=== PATIENT | female | born 1950 | race Caucasian/White ===

== ENCOUNTER → 2017-02-25 | Outpatient (CLI) | payer OTHER ==
[~2017-02-25] MED LIST: CEPHALEXIN500 M1 PO
== END | disposition home or self-care (01) ==
LOC: ORTHO 08:51
DX: M25.572 Pain in left ankle and joints of left foot (principal); M25.475 Effusion, left foot

== ENCOUNTER → 2017-04-02 | Outpatient (CLI) | payer OTHER | END | disposition home or self-care (01) | LOC: MRI 03-28 08:00 | DX: S90.32XA Contusion of left foot, initial encounter (principal); X58.XXXA Exposure to other specified factors, initial encounter; Y93.89 Activity, other specified; Y92.89 Other specified places as the place of occurrence of the external cause; Y99.8 Other external cause status ==

== ENCOUNTER → 2017-05-01 | Outpatient (CLI) | payer OTHER | END | disposition home or self-care (01) | LOC: ORTHO 03:41 | DX: S92.352D Displaced fracture of fifth metatarsal bone, left foot, subsequent encounter for fracture with routine healing (principal); S92.342D Displaced fracture of fourth metatarsal bone, left foot, subsequent encounter for fracture with routine healing; X58.XXXD Exposure to other specified factors, subsequent encounter; M20.12 Hallux valgus (acquired), left foot ==

== ENCOUNTER → 2017-07-17 | Outpatient (CLI) | payer MEDICARE | END | disposition home or self-care (01) | LOC: ORTHO 00:22 → RAD 08:00 → ORTHO 10:20 | DX: S92.355D Nondisplaced fracture of fifth metatarsal bone, left foot, subsequent encounter for fracture with routine healing (principal); X58.XXXD Exposure to other specified factors, subsequent encounter ==

== ENCOUNTER → 2018-02-07 | Day surgery (SDC) | payer MEDICARE ==
[~2018-02-07] VITALS: Ht 152.4 cm; Wt 53.5 kg
[~2018-02-07] MED LIST changes: +ATORVASTATIN CA10 M1 PO; +CALCIUM500 M1 PO; +ZEGERID OTC 201 EACH PO
--- NOTE | ~2018-02-07 | PROC NOTE ---
[place], [place] PROCEDURE NOTE NAME: SHAGGY WALLACE [facility] #: [id number] UNIT #: [id number] ROOM: DOCTOR: BROOKLYN PÉREZ MD BIRTHDATE: [birth year] DOS: PROCEDURE: 1. EGD and biopsy. 2. Colonoscopy. INDICATIONS: GERD and history of colon polyps. An informed consent was obtained from the patient after indication of procedures, the alternatives and potential complications were explained to her. PROCEDURE MEDICATION: Sedation was administered by Anesthesiology Department. SCOPE USED: For upper endoscopy, Olympus diagnostic adult upper endoscope GIF-180, depth of insertion was to the descending duodenum. With the colonoscopy, scope used was Olympus pediatric colonoscope variable stiffness GIF-180, depth of insertion was to the cecum, which was identified by the usual landmarks, appendiceal orifice, ileocecal valve and triangular fold, in addition to transillumination in the right lower quadrant. FINDINGS: After adequate sedation, the patient was placed in left lateral decubitus position. Upper endoscopy was performed first. Scope was introduced under direct visualization through the upper esophageal sphincter into the esophagus. Esophageal mucosa appeared normal with no evidence of ulcerations or strictures. Lower esophageal sphincter was identified at 38 cm from the incisors. The stomach was then intubated. Gastric mucosa inspected. Moderate gastritis was seen. No discrete ulcers or active bleeding. A VANCE test was performed from the gastric antrum and body. On retroflexed views in the fundus, no hiatal hernia was seen. The pylorus was intubated easily. The duodenal bulb and descending duodenum were within normal range. Scope was then withdrawn after the stomach was decompressed. We then proceeded with the colonoscopy. Rectal examination showed diminished sphincter tone and no external hemorrhoids. Scope was introduced into the rectum, then advanced to the cecum with slight difficulty due to looping left colon. The prep was good. Mild left-sided diverticular disease was identified with no evidence of acute diverticulitis or diverticular hemorrhage. The remaining colon mucosa appeared otherwise normal with no evidence of polyps, ulcerations or obstructing lesions. Retroflexed views in the rectum showed grade 2 internal hemorrhoids. Scope was then withdrawn after the rectum was decompressed. The patient tolerated the procedures well. IMPRESSION: 1. Moderate gastritis, VANCE test performed. 2. Mild left-sided diverticular disease. 3. Normal colon mucosa otherwise. No polyps seen. PLAN: We will review the VANCE test results and treat the patient accordingly. Repeat surveillance colonoscopy advised in 5 years. Office followup will be scheduled in 2-3 weeks. [place], [place] PROCEDURE NOTE NAME: SHAGGY WALLACE Sixt[facility] UNIT #: [id number] ROOM: DOCTOR: BROOKLYN PÉREZ MD BIRTHDATE: [birth year] BROOKLYN PÉREZ MD CM:PROCNOTE:PROCEDURE NOTE [id number] BROOKLYN PÉREZ MD
[2018-02-07 07:44] VITALS: BP 127/72
[2018-02-07 08:37] VITALS: BP 116/68
[2018-02-07 08:47] VITALS: BP 95/53
[2018-02-07 09:04] VITALS: BP 112/58
== END ==
LOC: SDC 02-03 08:00
DX: Z09 Encounter for follow-up examination after completed treatment for conditions other than malignant neoplasm (principal); K21.9 Gastro-esophageal reflux disease without esophagitis; K29.70 Gastritis, unspecified, without bleeding; K57.30 Diverticulosis of large intestine without perforation or abscess without bleeding; Z79.899 Other long term (current) drug therapy; Z90.710 Acquired absence of both cervix and uterus; Z86.010 Personal history of colon polyps
CPT/HCPCS: 00813; 43239; G0105

== ENCOUNTER → 2018-03-25 | Outpatient (CLI) | payer MEDICARE | END | disposition home or self-care (01) | LOC: LAB 09:34 | DX: A04.8 Other specified bacterial intestinal infections (principal) ==

== ENCOUNTER → 2018-04-11 | Outpatient (CLI) | payer MEDICARE ==
[2018-04-11 09:27] LABS: BASO % 0.9 % (0.0-1.0); EOS # 0.1 10*3/uL (0.0-0.4); EOS % 2.1 % (1.0-4.0); HEMATOCRIT 46.2 % (37.0-47.0); HEMOGLOBIN 14.4 g/dl (12.0-16.0); LYMPH # 1.9 10*3/uL (1.3-4.4); LYMPH % 44.1 % (27.0-41.0); MEAN CELL VOLUME 95.1 fl (81.0-99.0); MEAN CORPUSCULAR HGB 29.6 pg (27.0-31.0); MEAN CORPUSCULAR HGB CONC 31.2 g/dl (33.0-37.0); MONO # 0.3 10*3/uL (0.1-1.0); MONO % 7.5 % (3.0-9.0); NEUT # 1.9 10*3/uL (2.3-7.9); NEUT % 45.2 % (47.0-73.0); PLATELET COUNT AUTOMATED 245 10*3/uL (130-400); RED BLOOD COUNT 4.86 10*6/uL (4.10-5.10); WHITE BLOOD COUNT 4.2 10*3/uL (4.8-10.8)
[2018-04-11 09:51] LABS: ALBUMIN 3.6 gm/dl (3.1-4.5); BUN 13 mg/dl (7-24); CHLORIDE 108 mmol/L (98-107); SODIUM 144 mmol/L (136-145)
[2018-04-11 10:03] LABS: ALKALINE PHOSPHATASE 91 U/L (45-117); CHOLESTEROL 178 mg/dL (<200); HDL CHOLESTEROL 45 mg/dl (40-60); LDL CHOLESTEROL 99 mg/dL (9-159); SGOT/AST 27 IU/L (3-35); SGPT/ALT 45 U/L (12-78); TOTAL PROTEIN 7.3 gm/dL (6.4-8.2); TRIGLYCERIDES 169 mg/dl (<150); VLDL CHOLESTEROL 34 mg/dL (6-40)
== END | disposition home or self-care (01) ==
LOC: LAB 08:28
PROVIDERS: Internal Medicine
DX: Z00.01 Encounter for general adult medical examination with abnormal findings (principal); E78.00 Pure hypercholesterolemia, unspecified; E55.9 Vitamin D deficiency, unspecified

== ENCOUNTER → 2018-05-19 | Outpatient (CLI) | payer MEDICARE | END | disposition home or self-care (01) | LOC: RAD 12:36 | DX: M85.89 Other specified disorders of bone density and structure, multiple sites (principal); Z78.0 Asymptomatic menopausal state; Z90.710 Acquired absence of both cervix and uterus ==

== ENCOUNTER → 2019-04-13 | Outpatient (CLI) | payer MEDICARE ==
[2019-04-13 09:18] LABS: HEMATOCRIT 46.3 % (37.0-47.0); HEMOGLOBIN 14.9 g/dl (12.0-16.0); MEAN CELL VOLUME 95.1 fl (81.0-99.0); MEAN CORPUSCULAR HGB 30.6 pg (27.0-31.0); MEAN CORPUSCULAR HGB CONC 32.2 g/dl (33.0-37.0); MEAN PLATELET VOLUME 11.3 fl (9.6-12.3); RED BLOOD COUNT 4.87 10*6/uL (4.10-5.10); RED CELL DISTRI WIDTH 13.1 % (0-14.5)
[2019-04-13 09:30] LABS: CHLORIDE 106 mmol/L (98-107); POTASSIUM 4.3 mmol/L (3.5-5.1); SODIUM 143 mmol/L (136-145)
[2019-04-13 09:55] LABS: ALBUMIN 3.8 gm/dl (3.1-4.5); BUN 16 mg/dl (7-24); CHOLESTEROL 164 mg/dL (<200); CREATININE 0.93 mg/dL (0.55-1.02); SGPT/ALT 25 U/L (12-78); TRIGLYCERIDES 103 mg/dl (<150); VLDL CHOLESTEROL 21 mg/dL (6-40)
[2019-04-13 10:24] LABS: ALKALINE PHOSPHATASE 85 U/L (45-117); SGOT/AST 19 IU/L (3-35); TOTAL PROTEIN 7.1 gm/dL (6.4-8.2)
[2019-04-13 10:25] LABS: HDL CHOLESTEROL 52 mg/dl (40-60); LDL CHOLESTEROL 91 mg/dL (9-159)
[2019-04-13 10:49] LABS: VITAMIN D, 25-HYDROXY 58.6 ng/mL (30-100)
== END | disposition home or self-care (01) ==
LOC: LAB 08:12
PROVIDERS: Physician Assistant
DX: E78.00 Pure hypercholesterolemia, unspecified (principal); K21.9 Gastro-esophageal reflux disease without esophagitis; E55.9 Vitamin D deficiency, unspecified

== ENCOUNTER → 2019-08-24 | Outpatient (CLI) | payer MEDICARE | END | disposition home or self-care (01) | LOC: MRI 00:26 | DX: I67.82 Cerebral ischemia (principal); H90.41 Sensorineural hearing loss, unilateral, right ear, with unrestricted hearing on the contralateral side ==

== ENCOUNTER → 2020-05-18 | Outpatient (CLI) | payer MEDICARE | END | disposition home or self-care (01) | LOC: RAD 08:48 | DX: M85.89 Other specified disorders of bone density and structure, multiple sites (principal) ==

== ENCOUNTER → 2020-06-08 | Outpatient (CLI) | payer MEDICARE | END | disposition home or self-care (01) | LOC: RESCLI 00:37 | DX: M85.89 Other specified disorders of bone density and structure, multiple sites (principal); K21.9 Gastro-esophageal reflux disease without esophagitis; E55.9 Vitamin D deficiency, unspecified; E78.2 Mixed hyperlipidemia; Z79.899 Other long term (current) drug therapy; E78.00 Pure hypercholesterolemia, unspecified; Z90.710 Acquired absence of both cervix and uterus; Z98.890 Other specified postprocedural states ==

== ENCOUNTER → 2020-10-20 | Outpatient (CLI) | payer MEDICARE | END | disposition home or self-care (01) | LOC: RESCLI 00:43 | PROVIDERS: ATTEND Internal Medicine Nephrology | DX: K21.9 Gastro-esophageal reflux disease without esophagitis (principal); M85.89 Other specified disorders of bone density and structure, multiple sites; E78.5 Hyperlipidemia, unspecified; Z79.899 Other long term (current) drug therapy ==

== ENCOUNTER → 2021-04-13 | Outpatient (CLI) | payer MEDICARE | END | disposition home or self-care (01) | LOC: RESCLI 02:04 | PROVIDERS: ATTEND Internal Medicine | DX: E78.5 Hyperlipidemia, unspecified (principal); K21.9 Gastro-esophageal reflux disease without esophagitis; M85.89 Other specified disorders of bone density and structure, multiple sites; E78.00 Pure hypercholesterolemia, unspecified; Z79.899 Other long term (current) drug therapy ==

== ENCOUNTER → 2022-04-12 | Outpatient (CLI) | payer MEDICARE | END | disposition home or self-care (01) | LOC: RESCLI 00:58 | PROVIDERS: ATTEND Internal Medicine | DX: K21.9 Gastro-esophageal reflux disease without esophagitis (principal); M81.0 Age-related osteoporosis without current pathological fracture; E78.2 Mixed hyperlipidemia; F41.9 Anxiety disorder, unspecified; G47.00 Insomnia, unspecified; Z79.899 Other long term (current) drug therapy ==

== ENCOUNTER → 2022-08-13 | Outpatient (CLI) | payer MEDICARE ==
[2022-08-13 10:09] LABS: HEMATOCRIT 46.7 % (37.0-47.0); MEAN CELL VOLUME 95.3 fl (81.0-99.0); MEAN CORPUSCULAR HGB 30.8 pg (27.0-31.0); MEAN CORPUSCULAR HGB CONC 32.3 g/dl (33.0-37.0); MEAN PLATELET VOLUME 10.8 fl (9.6-12.3); RED BLOOD COUNT 4.9 10*6/uL (4.10-5.10); RED CELL DISTRI WIDTH 13.2 % (0-14.5); WHITE BLOOD COUNT 4.4 10*3/uL (4.8-10.8)
[2022-08-13 10:39] LABS: ALKALINE PHOSPHATASE 80 U/L (45-117); BUN 17 mg/dl (7-24); CHLORIDE 111 mmol/L (98-107); CHOLESTEROL 175 mg/dL (<200); LDL CHOLESTEROL 96 mg/dL (9-159); POTASSIUM 4.2 mmol/L (3.5-5.1); SGOT/AST 16 IU/L (3-35); SGPT/ALT 25 U/L (12-78); SODIUM 145 mmol/L (136-145); TOTAL PROTEIN 7.1 gm/dL (6.4-8.2); TRIGLYCERIDES 128 mg/dl (<150)
== END | disposition home or self-care (01) ==
LOC: LAB 09:21
PROVIDERS: ATTEND Physician Assistant
DX: K21.9 Gastro-esophageal reflux disease without esophagitis (principal); E78.2 Mixed hyperlipidemia

== ENCOUNTER → 2022-08-20 | Outpatient (CLI) | payer MEDICARE | END | disposition home or self-care (01) | LOC: RAD 02:49 | PROVIDERS: ATTEND Physician Assistant | DX: M85.852 Other specified disorders of bone density and structure, left thigh (principal); M85.89 Other specified disorders of bone density and structure, multiple sites; N95.9 Unspecified menopausal and perimenopausal disorder ==

== ENCOUNTER → 2022-11-12 | Outpatient (CLI) | payer MEDICARE | END | disposition home or self-care (01) | LOC: INJECTION 10-29 00:39 | PROVIDERS: ATTEND Physician Assistant | DX: M81.0 Age-related osteoporosis without current pathological fracture (principal); K21.9 Gastro-esophageal reflux disease without esophagitis ==

== ENCOUNTER → 2023-03-20 | Outpatient (CLI) | payer MEDICARE | END | disposition home or self-care (01) | LOC: RESCLI 01:23 | PROVIDERS: ATTEND Student in an Organized Health Care Education/Training Program | DX: K21.9 Gastro-esophageal reflux disease without esophagitis (principal); M85.89 Other specified disorders of bone density and structure, multiple sites; Z91.09 Other allergy status, other than to drugs and biological substances; E78.2 Mixed hyperlipidemia; M81.0 Age-related osteoporosis without current pathological fracture; H10.9 Unspecified conjunctivitis; Z12.11 Encounter for screening for malignant neoplasm of colon; Z82.49 Family history of ischemic heart disease and other diseases of the circulatory system; F10.90 Alcohol use, unspecified, uncomplicated; Z90.710 Acquired absence of both cervix and uterus; Z98.890 Other specified postprocedural states; Z79.899 Other long term (current) drug therapy ==

== ENCOUNTER → 2023-05-23 | Day surgery (SDC) | payer MEDICARE ==
[~2023-05-23] VITALS: Ht 152.4 cm; Wt 53.5 kg
[2023-05-23 06:56] VITALS: BP 114/73
[2023-05-23 07:51] VITALS: BP 103/53
[2023-05-23 08:04] VITALS: BP 112/61
[2023-05-23 08:21] VITALS: BP 121/66
== END ==
LOC: SDC 05-16 08:45
PROVIDERS: ATTEND Surgery
DX: Z12.11 Encounter for screening for malignant neoplasm of colon (principal); D12.2 Benign neoplasm of ascending colon; K57.30 Diverticulosis of large intestine without perforation or abscess without bleeding; K29.50 Unspecified chronic gastritis without bleeding; K21.9 Gastro-esophageal reflux disease without esophagitis; E78.00 Pure hypercholesterolemia, unspecified; Z86.010 Personal history of colon polyps; Z90.710 Acquired absence of both cervix and uterus; Z98.890 Other specified postprocedural states

== ENCOUNTER → 2023-06-14 | Outpatient (CLI) | payer MEDICARE ==
[2023-06-14 10:30] VITALS: BP 144/58
== END | disposition home or self-care (01) ==
LOC: INJECTION 01:02
PROVIDERS: ATTEND Physician Assistant
DX: M81.0 Age-related osteoporosis without current pathological fracture (principal); K21.9 Gastro-esophageal reflux disease without esophagitis; E78.00 Pure hypercholesterolemia, unspecified; Z90.710 Acquired absence of both cervix and uterus; Z98.890 Other specified postprocedural states

== ENCOUNTER → 2024-03-11 | Outpatient (CLI) | payer MEDICARE | END | disposition home or self-care (01) | LOC: RESCLI 01:27 | PROVIDERS: ATTEND Internal Medicine | DX: K21.9 Gastro-esophageal reflux disease without esophagitis (principal); E78.5 Hyperlipidemia, unspecified; M81.0 Age-related osteoporosis without current pathological fracture; H10.9 Unspecified conjunctivitis; M85.88 Other specified disorders of bone density and structure, other site; E78.00 Pure hypercholesterolemia, unspecified; Z98.890 Other specified postprocedural states; Z82.49 Family history of ischemic heart disease and other diseases of the circulatory system; Z79.899 Other long term (current) drug therapy ==

== ENCOUNTER → 2024-06-24 | Outpatient (CLI) | payer MEDICARE ==
[~2024-06-24] MED LIST changes: +DENOSUMAB 60 MG/ML SYRINGE SC ONE
== END | disposition home or self-care (01) ==
LOC: INJECTION 01:46
PROVIDERS: ATTEND Physician Assistant
DX: M81.0 Age-related osteoporosis without current pathological fracture (principal)

== ENCOUNTER → 2024-12-25 | Outpatient (CLI) | payer MEDICARE ==
[2024-12-25 09:20] VITALS: BP 112/64
== END | disposition home or self-care (01) ==
LOC: INJECTION 01:27
PROVIDERS: ATTEND Physician Assistant
DX: M81.0 Age-related osteoporosis without current pathological fracture (principal); K21.9 Gastro-esophageal reflux disease without esophagitis; E78.00 Pure hypercholesterolemia, unspecified